=== PATIENT | male | born 1955 | race Caucasian/White ===

== ENCOUNTER → 2016-06-25 | Outpatient (CLI) | payer BC ==
[~2016-06-25] MED LIST: ASPI81TA25 PO; ATOR-26 PO; CHOL100010 PO; CLOP1TAB15 PO; DOXY100C76 PO; HYDR-5688 PO; IBUP-103 PO; LISI-729 PO; METO25TA3 PO; MULT-506 PO; NTRGSL/4 UT; ZNTT/150 PO
[2016-06-25 14:35] LABS: BASO % 0.1 %; BASO ABS # 0.01 K/uL (0-0.2); COMPLETE YES; EOS % 0.3 %; HEMATOCRIT 44.7 % (42-52); IG% 0.1 %; LYMPH ABS # 1.27 K/uL (1.2-3.4); MEAN CELL VOLUME 96.1 fL (80-100); MEAN CORPUSCULAR HEMOGLOBIN 32.9 pg (25-34); MEAN CORPUSCULAR HGB CONC 34.2 g/dl (32-36); MEAN PLATELET VOLUME 10.6 fL (7.4-10.4); MONO % 9.4 %; NEUT % 73.1 %; PLATELET COUNT 239 K/uL (130-400); RED BLOOD COUNT 4.65 M/uL (4.7-6.1); WHITE BLOOD COUNT 7.46 K/uL (4.8-10.8)
[2016-06-25 14:42] LABS: PROTHROMBIN TIME (PATIENT) 10.7 SECONDS (9.0-12.0)
== END | disposition home or self-care (01) ==
LOC: C.LAB 12:39
PROVIDERS: ATTEND Orthopaedic Surgery
DX: M17.12 Unilateral primary osteoarthritis, left knee (principal)

== ENCOUNTER 2016-07-02 05:20 | Day surgery (SDC) | payer BC ==
[2016-03-01 08:26] VITALS: BMI 26.0
--- NOTE | 2016-03-01 08:53 | PAT Medication Instructions ---
Service Date Mar 01, 2016. Current Home Medication List Aspirin (Aspir-Low), 1 TAB PO QAM Atorvastatin (Lipitor), 80 MG PO QAM Cholecalciferol (Vitamin D), Unknown Dose PO QAM Clopidogrel (Plavix), 75 MG PO QAM Lisinopril (Zestril), 2.5 MG PO QAM Metoprolol Succinate (Toprol Xl), 25 MG PO QAM Multivitamin (Multivitamin), 1 TAB PO QAM Nitroglycerin (Nitrostat), 0.4 MG UT PRN PRN for CHEST PAIN Pantoprazole (Pantoprazole Sodium), 40 MG PO QAM Medication Instructions For Your Scheduled Surgery - Check with surgeon/network engineer administrator: Aspirin (Aspir-Low), 1 TAB PO QAM Clopidogrel (Plavix), 75 MG PO QAM - Hold the following medications the morning of surgery: Lisinopril (Zestril), 2.5 MG PO QAM Cholecalciferol (Vitamin D), Unknown Dose PO QAM Multivitamin (Multivitamin), 1 TAB PO QAM - Take the following medications the morning of surgery with a sip of water: Atorvastatin (Lipitor), 80 MG PO QAM Metoprolol Succinate (Toprol Xl), 25 MG PO QAM Pantoprazole (Pantoprazole Sodium), 40 MG PO QAM Nitroglycerin (Nitrostat), 0.4 MG UT PRN PRN for CHEST PAIN - Take the following medications as scheduled the night before surgery: Nitroglycerin (Nitrostat), 0.4 MG UT PRN PRN for CHEST PAIN If you have any questions please call us at [phone] (Apryl Hughes PA-C) or [phone] or [phone]
[2016-06-24 14:53] VITALS: BMI 26.0
--- NOTE | 2016-06-28 21:34 | HISTORY & PHYSICAL EXAMINATION ---
DATE OF ADMISSION: 07/02/2016 PREOPERATIVE HISTORY AND PHYSICAL SUBJECTIVE CHIEF COMPLAINT: Left knee pain. HISTORY OF PRESENT ILLNESS: The patient is a 61-year-old male. He is here for left knee pain. He stated that the symptoms have occurred gradually. He states the pain is aching, piercing, sharp and stabbing. He notices the pain more so going up and down stairs as well as with twisting motions. An MRI was obtained. MRI showed degenerative tearing of the medial meniscus in the posterior horn. PAST MEDICAL HISTORY: heart attack in may of 2015, GERD PAST SURGICAL HISTORY: Six stent placement right arthroscopic meniscal surgery and sinus surgery. SOCIAL HISTORY: Drinks 3 alcoholic beverages a week. He denies smoking or tobacco use. Denies IV or illegal drug use. He is a teacher at [email or web address]. ALLERGIES: No known drug allergies. REVIEW OF SYSTEMS: Denies fevers chills, headache, weight loss double vision, blurry vision, sore throat, hearing loss, tremors, numbness, tingling, dizziness, tired, thirsty, hot and cold intolerance, abdominal pain, nausea, vomiting, diarrhea, heartburn, chest pain, swelling into the legs or feet, frequency going to the bathroom or pain or burning with urination, wheezing, cough, shortness of breath, depression, thoughts to harm himself or harm others. He is positive for joint pain, stiffness and swelling of the left knee. OBJECTIVE: GENERAL APPEARANCE: The patient 61 year old male sitting in no acute distress. Well-dressed, well groomed. He is awake, alert and oriented x3. VITAL SIGNS: Height 6 feet 1/2 inches, 185 pounds, blood pressure HEENT: Extraocular movements intact PERRLA, no septal deviation. NECK: Supple with no lymphadenopathy, no JVD, no thyromegaly. HEART: Regular rate and rhythm with no murmurs or gallops. LUNGS: Clear to auscultation. No wheezing or rhonchi. ABDOMEN: Soft, nontender, nondistended. Normal bowel sounds, no hepatosplenomegaly. EXTREMITIES: Paying particular attention to the left knee, he is painful along the medial joint line. He is able to extend to 0 degrees actively and flex to 115 degrees actively. He does have a positive Jennyfer test. He has a negative Abel's, valgus and varus stress test, anterior and posterior drawer. MRI demonstrates medial meniscus appears truncated portions of meniscus which may indicate partial meniscectomy. The remaining body and posterior horn show increased signal. collateral ligaments are all preserved. Minimal arthritic changes present in the medial compartment. IMPRESSION: Left knee medial meniscal tear. PLAN: The patient is scheduled for a left PMM. The patient has failed conservative which include anti-inflammatories and physical therapy and he would like to proceed with his left PMM. Risks and benefits of the surgery include but not limited to infection, DVT, pain, stiffness, need for revision surgery, failure to relieve all symptoms, progression of damage to blood vessels, damage to nerves, and risks of anesthesia were all discussed and he wishes to proceed. All questions were answered to his satisfaction. He will stop his Plavix 10 days before the surgery and he will continue his aspirin therapy throughout his surgical course and consult his floor coverings salesperson. KATIE
[~2016-07-02] VITALS: Ht 182.9 cm; Wt 89.4 kg
[~2016-07-02 05:20] MED LIST changes: -HYDR-5688 PO; -IBUP-103 PO
[2016-07-02 05:40] VITALS: BP 141/86; PULSE 66; TEMP 36.8; O2SAT 96; Ht 182.9 cm; Wt 89.4 kg
[2016-07-02] MEDS ORDERED: CEFAZOLIN 2000 MG/60 ML D5W IV SCH (06:00)
[2016-07-02] MEDS ORDERED: LACTATED RINGER'S 1000ML 1,000 ML IV SCH (06:00)
[2016-07-02] MEDS ORDERED: IBUP-103 PO (06:03)
[2016-07-02] MEDS ORDERED: BUPIVACAINE 0.25% 30 ML VIAL ONE (06:15)
[2016-07-02] MEDS ORDERED: BUPIVACAINE 0.5 % 5 MG/1 ML PF 10ML VIAL ONE (06:15)
[2016-07-02] MEDS ORDERED: FENTANYL CITRATE INJ 50 MCG/1 ML 2 ML VIAL ONE ×2 (06:30→07:19)
[2016-07-02] MEDS ORDERED: MIDAZOLAM HCL 1 MG/ML 2ML VIAL ONE (06:30)
[2016-07-02 06:47] LABS: BUN/CREATININE RATIO 18.6 (10-20); CALCIUM 8.9 mg/dl (8.5-10.1); CREATININE 0.74 mg/dl (0.60-1.40); POTASSIUM 3.9 mmol/L (3.5-5.1)
[2016-07-02] MEDS ORDERED: CEFAZOLIN IV 2,000 MG/60 ML D5W IV ONE (06:47)
[2016-07-02] MEDS ORDERED: LIDOCAINE/EPINEPHRINE 1% 20 ML VIAL ONE (06:49)
[2016-07-02] MEDS ORDERED: BUPIVACAINE 0.5 % 5 MG/1 ML MPF 30ML VIAL ONE (06:49)
--- NOTE | 2016-07-02 06:54 | History & Physical Bridge Note ---
H&P Re-Evaluation Bridge Note: I have examined the patient, reviewed the History & Physical and in the interval since the performance of the History & Physical I have noted the following changes of clinical significance: No changes noted
[2016-07-02] MEDS ORDERED: HYDR-5688 PO ×2 (07:22→07:33)
[2016-07-02] MEDS ORDERED: HYDROmorphone INJ 2 MG/ML SYR/VIAL ONE (07:25)
[2016-07-02] MEDS ORDERED: ONDANSETRON INJ 2 MG/ML 2 ML VIAL ONE (07:26)
[2016-07-02] MEDS ORDERED: DEXAMETHASONE SOD INJ 4 MG/ML VIAL ONE (07:26)
[2016-07-02] MEDS ORDERED: PROPOFOL IV EMULSION 10 MG/ML 20 ML VIAL IV ONE (07:26)
[2016-07-02] MEDS ORDERED: RANITIDINE HCL 25 MG/ML INJ ONE (07:26)
[2016-07-02] MEDS ORDERED: LIDOCAINE HCL 2% 2 ML VIAL (20MG/ML) ONE (07:26)
[2016-07-02] MEDS ORDERED: METOCLOPRAMIDE HCL INJ 5 MG/ML 2 ML VIAL ONE (07:26)
[2016-07-02] MEDS ORDERED: KETOROLAC TROMETHAMINE 30 MG/ML VIAL ONE (07:28)
--- NOTE | 2016-07-02 07:28 | Discharge Instructions ---
Discharge Instructions Date of Service Jul 02, 2016. Admission Reason for Admission: Left Knee Medial Meniscus Tear Discharge Discharge Diagnosis / Problem: Left knee medial meniscal repair Discharge Goals Goal(s): Decrease discomfort, Improve function Activity Recommendations Activity Limitations: per Instructions/Follow-up section . Instructions / Follow-Up Instructions / Follow-Up ACTIVITY RECOMMENDATIONS: * You may walk on the leg with or without crutches as comfort permits. * Bending of the knee should start at once. * Do not shower for 48 hours following surgery. SPECIAL CARE INSTRUCTIONS: * You may cleanse the skin adjacent to the small wounds with soap and water at the time of the first dressing change. * The application of an ice bag to the front and sides of the knee will decrease swelling and discomfort for the first 48 hours. * The small incisions may be sore and develop bruising. This bruising does not require any special care. SPECIAL PRECAUTIONS: * If you experience unusual pain unrelieved by prescriptions, temperature elevation (100 degrees F. or above) or progressive swelling or bleeding, you should contact our office at for further evaluation. * You may have been prescribed pain medication. If you experience nausea and/or fine skin rash, discontinue this medication and contact our office at for an alternate medication. DRESSING: * Dressing should be comfortable and absorb any leakage of fluid and/or blood. * The dressing may become moist or bloodstained. * Dressing may be removed 48 hours after surgery and bandaids placed over the small surgical incisions. If can be removed sooner if it becomes very soiled or loose. * Bandaids may be used over next several days as needed and can be discontinued when there is not further drainage from the wounds. FOLLOW UP VISIT: If appointment is not already scheduled: Follow up 12-14 days after surgery Please call [facility] to make a follow-up appointment for your surgery at . Current Hospital Diet Patient's current hospital diet: Regular Diet Discharge Diet Recommended Diet: Regular Diet Pending Studies Studies pending at discharge: no Medical Emergencies . Who to Call and When: Medical Emergencies: If at any time you feel your situation is an emergency, please call 911 immediately. . Non-Emergent Contact Non-Emergency issues call your: Surgeon Call Non-Emergent contact if: temperature is above 101.5, your pain is worsening, wound has increased drainage, wound has increased redness, wound has increased pain . "Provider Documentation" section prepared by Santo Munoz. VTE Core Measure Inpt VTE Proph given/why not?: Treatment not indicated [place] Drug Monitoring Program Search Results: patient reviewed within database, no issues identified Drug Monitoring Findings: Patient results were reviewed and there is no alert on file.
[2016-07-02] MEDS ORDERED: ACETAMINOPHEN 325 MG TAB PO PRN (07:30)
[2016-07-02] MEDS ORDERED: HYDROCODONE/ACETAMOPHEN 5/325MG TAB PO PRN (07:30)
[2016-07-02] MEDS ORDERED: ONDANSETRON INJ 2 MG/ML 2 ML VIAL IV PRN ×2 (07:30→08:00)
--- NOTE | 2016-07-02 07:41 | [facility] Post Operative Brief Note ---
Immediate Operative Summary Operative Date Jul 02, 2016. Pre-Operative Diagnosis L MMT, chondromalacia [facility] Post-Operative Diagnosis same Procedure(s) Performed L PMM, chondroplasty Surgeon Brayan Teacher Citizenship Surgeon(s) 0 Estimated Blood Loss min Findings above Specimens 0 Drains 0 Anesthesia geta Complication(s) None Disposition Recovery Room / PACU
[2016-07-02] MEDS ORDERED: PROMETHAZINE HCL INJ 12.5 MG in SODIUM CHLORIDE 0.9% 50ML 50 ML IV PRN (08:00)
[2016-07-02] MEDS ORDERED: FLUMAZENIL 0.1 MG/1 ML 10 ML VIAL IV PRN (08:00)
[2016-07-02] MEDS ORDERED: EpHEDrine SULFATE INJ 50 MG/ML AMP IV PRN (08:00)
[2016-07-02] MEDS ORDERED: ATROPINE SULFATE 0.1 MG/ML 5ML SYR IV PRN (08:00)
[2016-07-02] MEDS ORDERED: NALOXONE HCL 0.4 MG/1 ML VIAL/CARP IV PRN (08:00)
[2016-07-02] MEDS ORDERED: LABETALOL HCL IV 5 MG/ML 20ML IV PRN (08:00)
--- NOTE | 2016-07-02 08:25 | OPERATIVE REPORT ---
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 POSTOPERATIVE DIAGNOSES: Same. PROCEDURES: Left partial medial meniscectomy and chondroplasty of medial femoral condyle. SURGEON: Dr. Zeus Schmidt. SPECIALTY DEVELOPMENT CONSULTANT: None. ANESTHESIA: General endotracheal anesthesia. SPECIMENS: None. COMPLICATIONS: None. ESTIMATED BLOOD LOSS: Minimal. INDICATIONS: The patient is a 61-year-old male who developed significant pain in the left knee. MRI demonstrated complex tear of the posterior horn of the medial meniscus. He wished to proceed with arthroscopy. Risks, benefits, and alternatives of surgery including, but not limited to infection, DVT, pain, stiffness, need for urgent surgery, failure to relieve all symptoms, damage to blood vessels, damage to nerves, and risks of anesthesia were discussed with the patient and he wished to proceed. DESCRIPTION OF PROCEDURE: The patient was identified. Laterality was confirmed and marked. He received a preoperative antibiotic. He was transferred to the operating room, placed in supine position, and induced with general endotracheal anesthesia per anesthesia staff. A well-padded tourniquet was placed on the thigh, but not used during the case. Limb was prepped and draped in the usual sterile manner with ChloraPrep. Port sites were anesthetized with lidocaine with epinephrine. I made a standard anterolateral viewing portal, made a stab incision, bluntly entered the suprapatellar pouch and under spinal needle localization, established anteromedial portal. He had no significant changes of the cartilage of the patellar trochlea. He had grade 2 changes to the medial femoral condyle. Unstable chondral flaps were debrided back to a stable base utilizing a shaver. He had a complex tear of the posterior horn and body of the medial meniscus. This was debrided back to a stable base utilizing a shaver. The ACL and PCL were intact. Cartilage of the lateral femoral condyle and lateral tibial plateau was normal. Lateral meniscus was normal. All instrumentation was removed from the knee. Port sites were closed with nylon. Knee was anesthetized with Marcaine. Sterile dressing was applied. All needle and sponge counts were correct at the end of the procedure. The patient was transferred to the PACU in stable condition without apparent complication. I attest to the content of the Intraoperative Record and any orders documented therein. Any exceptio ns are noted below.
[2016-07-02 08:35] VITALS: PULSE 55; TEMP 36.5; O2SAT 95
[2016-07-02 08:36] VITALS: BP 118/61; PULSE 55; TEMP 36.5; O2SAT 95
--- NOTE | 2016-07-02 08:36 | Anesthesiology Progress Note ---
Anesthesia Post Op Note Date & Time Jul 02, 2016 at 08:36 Vital Signs Pain Intensity: 0 Vital Signs Past 12 Hours Date Time Temp Pulse Resp B/P Pulse Ox O2 Delivery O2 Flow Rate FiO2 07/02/16 08:25 36.5 59 19 123/70 99 Room Air 07/02/16 08:01 60 10 96 07/02/16 08:01 61 10 07/02/16 08:00 118/67 07/02/16 07:56 52 12 97 07/02/16 07:56 52 12 07/02/16 07:55 119/58 07/02/16 07:51 51 12 07/02/16 07:51 52 12 98 07/02/16 07:50 120/68 07/02/16 07:47 134/70 07/02/16 07:46 53 12 98 07/02/16 07:46 53 12 07/02/16 07:46 36.5 57 14 134/70 97 Mask 10 07/02/16 05:40 36.8 66 16 141/86 96 Room Air Notes Mental Status: alert / awake / arousable, participated in evaluation Pt Amnestic to Procedure: Yes Nausea / Vomiting: adequately controlled Pain: adequately controlled Airway Patency, RR, SpO2: stable & adequate BP & HR: stable & adequate Hydration State: stable & adequate Anesthetic Complications: no major complications apparent
[2016-07-02 09:05] VITALS: BP 112/58; PULSE 60; O2SAT 96
[2016-07-02 09:32] VITALS: BP 118/73; PULSE 58; TEMP 36.4; O2SAT 95
== END 2016-07-02 09:35 | disposition home or self-care (01) ==
LOC: C.ACU 05:20
PROVIDERS: ATTEND Orthopaedic Surgery
DX: M23.232 Derangement of other medial meniscus due to old tear or injury, left knee (principal); M94.262 Chondromalacia, left knee; I25.2 Old myocardial infarction; K21.9 Gastro-esophageal reflux disease without esophagitis; Z95.5 Presence of coronary angioplasty implant and graft; Z98.890 Other specified postprocedural states